=== PATIENT | female | born 1990 | race Caucasian/White ===

== ENCOUNTER 2020-01-30 20:14 | Emergency (ER) | payer OTHER ==
--- NOTE | 2020-01-30 20:50 | ER Document Report ---
ED Medical Screen (RME) - General Chief Complaint: Vaginal Pain Stated Complaint: PRESSURE IN VAGINAL AREA WITH PAIN Time Seen by Provider: 01/30/20 20:45 Mode of Arrival: Ambulatory Information source: Patient Notes: 29-year-old female presents to ED for complaint of very uncomfortable vaginal area. She states it feels like something is falling out is very painful to use a tampon. She states she usually she can use a very long tampon and now it feels like the cervix is right at the edge. She states her last menstrual period started a couple days ago. I have ordered blood urine ultrasound and self swabs for GC chlamydia and wet mount. She will need a pelvic exam when she is in a room and in the bed. I have greeted and performed a rapid initial assessment of this patient. A comprehensive ED assessment and evaluation of the patient, analysis of test results and completion of medical decision making process will be conducted by an additional ED providers. - Related Data Allergies/Adverse Reactions: No Known Allergies Allergy (Unverified 01/30/20 20:37) Past Medical History - Social History Frequency of alcohol use: None Drug Abuse: None Past Surgical History: Reports: Hx Tonsillectomy Physical Exam - Vital signs Vitals: Temp Pulse Resp BP Pulse Ox 98.9 F 98 16 154/97 H 100 01/30/20 20:25 01/30/20 20:25 01/30/20 20:25 01/30/20 20:25 01/30/20 20:25 Course - Vital Signs Vital signs: Temp Pulse Resp BP Pulse Ox 98.9 F 98 16 154/97 H 100 01/30/20 20:25 01/30/20 20:25 01/30/20 20:25 01/30/20 20:25 01/30/20 20:25
[2020-01-30 21:19] LABS: BACTERIA (WET MOUNT) 4+ BACTERIA SEEN; EPITHELIALS (WET MOUNT) 3+ EPITHELIALS SEEN; RBCS (WET MOUNT) RARE RBCS SEEN; T.VAGINALIS (WET MOUNT) NO TRICHOMONAS SEEN; WBCS (WET MOUNT) 2+ WBCS SEEN; YEAST (WET MOUNT) NO YEAST SEEN
[2020-01-30 21:38] LABS: ABSOLUTE BASOPHILS # (AUTO) 0.1 10^3/uL (0.0-0.2); ABSOLUTE EOSINOPHILS # (AUTO) 0.4 10^3/uL (0.0-0.6); ABSOLUTE LYMPHOCYTES (AUTO) 3.1 10^3/uL (0.5-4.7); ABSOLUTE MONOCYTES (AUTO) 0.8 10^3/uL (0.1-1.4); ABSOLUTE NEUT (AUTO) 7.9 10^3/uL (1.7-8.2); BASOPHILS % (AUTO) 0.5 % (0-2); EOSINOPHILS % (AUTO) 3.2 % (0-6); HEMOGLOBIN 14.4 g/dL (12.0-15.5); LYMPHOCYTES % (AUTO) 25.1 % (13-45); MEAN CORPUSCULAR HGB CONC 34.3 g/dL (32.0-36.0); MEAN CORPUSCULAR VOLUME 87 fl (80-97); MONOCYTES % (AUTO) 6.5 % (3-13); PLATELET COUNT 360 10^3/uL (150-450); RED CELL DISTRIBUTION WIDTH 13.1 % (11.5-14.0); SEGMENTED NEUTROPHILS % (AUTO) 64.7 % (42-78); TOTAL CELLS COUNTED % (AUTO) 100 %; WHITE BLOOD COUNT 12.3 10^3/uL (4.0-10.5)
[2020-01-30 21:39] LABS: ALBUMIN 4.8 g/dL (3.5-5.0); ALKALINE PHOSPHATASE 81 U/L (38-126); ANION GAP 9 (5-19); ASPARTATE AMINO TRANSFERASE 74 U/L (14-36); BILIRUBIN,DIRECT 0.1 mg/dL (0.0-0.4); BILIRUBIN,TOTAL 0.7 mg/dL (0.2-1.3); BLOOD UREA NITROGEN 19 mg/dL (7-20); CALCIUM 10.3 mg/dL (8.4-10.2); CARBON DIOXIDE 31 mmol/L (22-30); CHLORIDE 101 mmol/L (98-107); GLUCOSE 89 mg/dL (75-110); POTASSIUM 4.3 mmol/L (3.6-5.0); TOTAL PROTEIN 7.8 g/dL (6.3-8.2)
[2020-01-30 21:44] LABS: APPEARANCE,URINE SLIGHTLY-CLOUDY; BILIRUBIN,URINE NEGATIVE (NEGATIVE); COLOR,URINE YELLOW; GLUCOSE, URINE NEGATIVE (NEGATIVE); KETONES,URINE NEGATIVE (NEGATIVE); LEUKOCYTE ESTERASE,URINE SMALL (NEGATIVE); NITRITE,URINE NEGATIVE (NEGATIVE); PROTEIN,URINE NEGATIVE (NEGATIVE); URINE SPECIFIC GRAVITY 1.018
--- NOTE | 2020-01-30 21:56 | RADIOLOGY REPORT (SQ) ---
US PELVIS TRANSVAGINAL HISTORY: 29 years Female pelvic pain COMPARISON: No relevant studies are available for comparison. Technique: Endovaginal Imaging of the pelvis was performed. Color and spectral imaging was performed. Overall the quality exam was difficult secondary to patient's body habitus. Uterus: Measures 5.8 x 2.8 x 3.5 cm. The endometrium is not well seen but measures approximately 4.1 mm. Multiple new both and cysts are seen in the cervix. The cervix measures 2 cm. Right Ovary: The ovary measures 2.7 x 1.7 x 2.8 cm and is morphologically normal.. Normal color and spectral doppler waveforms Left Ovary: Was not seen. No adnexal mass Other: No free fluid. No adnexal mass. IMPRESSION: 1. Multiple small nabothian cyst in the cervix. 2. Uterus and right ovary are unremarkable. 3. Left ovary is not seen.
[2020-01-30 22:52] LABS: CHLAM PCR NOT DETECTED (NOT DETECT)
[2020-01-31] MEDS ORDERED: HYDROCODONE/ACETAMINOPHEN 5-325 MG (6 TAB/ER DISP) PO PRN (02:40)
[2020-01-31] MEDS ORDERED: CEFTRIAXONE INJ 250 MG VIAL IM ONE (02:41)
[2020-01-31] MEDS ORDERED: LIDOCAINE 1% INJ-PF (10 MG/ML) 30 ML SDV INJ ONE (02:41)
[2020-01-31] MEDS ORDERED: DOXYCYCLINE HYCLATE 100 MG TABLET PO ONE (02:41)
--- NOTE | 2020-01-31 02:43 | ER Document Report ---
ED GI/ - General Chief Complaint: Vaginal Pain Stated Complaint: PRESSURE IN VAGINAL AREA WITH PAIN Time Seen by Provider: 01/30/20 20:45 Primary Care Provider: GINGER CHAPMAN PA-C [Primary Care Provider] - Follow up as needed Mode of Arrival: Ambulatory Notes: Patient is a 29-year-old who comes emergency department for chief complaint of lower abdominal pain, vaginal pain, and occasionally rating pain to her lower back on both sides. She reports urinary hesitancy but denies dysuria. She recently had a menstrual cycle. She denies overt vaginal discharge, she sexually active with her but not recently. She denies nausea or vomiting, fever or chills, or any other locations of pain. Past medical history of PCOS. She denies medical history otherwise. - Related Data Allergies/Adverse Reactions: No Known Allergies Allergy (Unverified 01/30/20 20:37) Past Medical History - General Information source: Patient - Social History Smoking Status: Never Smoker Frequency of alcohol use: None Drug Abuse: None Lives with: Family Family History: Reviewed & Not Pertinent Patient has homicidal ideation: No Past Surgical History: Reports: Hx Tonsillectomy Review of Systems - Review of Systems Constitutional: No symptoms reported EENT: No symptoms reported Cardiovascular: No symptoms reported Respiratory: No symptoms reported Gastrointestinal: See HPI Genitourinary: See HPI Female Genitourinary: See HPI Musculoskeletal: No symptoms reported Skin: No symptoms reported Hematologic/Lymphatic: No symptoms reported Neurological/Psychological: No symptoms reported Physical Exam - Vital signs Vitals: Temp Pulse Resp BP Pulse Ox 98.9 F 98 16 154/97 H 100 01/30/20 20:25 01/30/20 20:25 01/30/20 20:25 01/30/20 20:25 01/30/20 20:25 - Notes Notes: GENERAL: Alert, interacts well. No acute distress. HEAD: Normocephalic, atraumatic. EYES: Pupils equal, round, and reactive to light. Extraocular movements intact. ENT: Oral mucosa moist, tongue midline. Oropharynx unremarkable. Airway patent. NECK: Full range of motion. Supple. Trachea midline. No lymphadenopathy. LUNGS: Clear to auscultation bilaterally, no wheezes, rales, or rhonchi. No respiratory distress. Non-tender chest wall. HEART: Regular rate and rhythm. No murmur ABDOMEN: Minimal generalized nonspecific tenderness over the abdomen. No rigidity or guarding. No distention. EXTREMITIES: Moves all 4 extremities spontaneously. No edema, normal radial and dorsalis pedis pulses bilaterally. No cyanosis. BACK: no cervical, thoracic, lumbar midline tenderness. No saddle anesthesia, normal distal neurovascular exam. Moves all extremities in full range of motion. NEUROLOGICAL: Alert and oriented x3. Normal speech. Cranial nerves II through XII grossly intact. Strength 5/5 in all extremities. PSYCH: Patient talkative and becomes anxious easily, otherwise unremarkable SKIN: Warm, dry, normal turgor. No rashes or lesions noted. Course - Re-evaluation Re-evalutation: Patient is talkative, somewhat anxious, but overall very well-appearing. Abdomen is nonspecific with no overt tenderness or guarding noted. Vital signs unremarkable. CBC unremarkable, chemistry unremarkable except for mildly elevated LFTs, negative. Patient states she has elevated LFTs chronically and is adjusting her diet for this, no concerning upper abdominal pain, food intolerance, or vomiting. No CVA tenderness. No fever. Urinalysis nonspecific. Cell swabs reviewed and show white blood cells, nonspecific otherwise, gonorrhea and Chlamydia negative, trichomonas negative. I discussed all results with patient, she requests a copy of her blood labs and these were provided. Ultrasound reviewed and unremarkable other than some nabothian cysts which I also discussed with patient. I discussed a pelvic exam but patient states she has been waiting for 7 hours, after discussion this was deferred, santosh norton will be treated for suspected pelvic infection, she will follow-up with primary care, I discussed return precautions. Patient states appreciation and agreement. Stable and well-appearing at time of discharge. - Vital Signs Vital signs: Temp Pulse Resp BP Pulse Ox 98.4 F 85 16 135/87 H 96 01/31/20 03:48 01/31/20 03:48 01/31/20 03:48 01/31/20 03:48 01/31/20 03:48 - Laboratory Result Diagrams: 01/30/20 20:25 01/30/20 20:25 Laboratory results interpreted by me: 01/30/20 01/30/20 01/30/20 20:25 20:25 20:58 WBC 12.3 H Carbon Dioxide 31 H Calcium 10.3 H AST 74 H ALT 133 H Urine Blood MODERATE H Urine Urobilinogen 2.0 H Ur Leukocyte Esterase SMALL H Discharge - Discharge Clinical Impression: Vaginal pain Abdominal pain Qualifiers: Abdominal location: generalized Qualified Code(s): R10.84 - Generalized abdominal pain Condition: Stable Disposition: HOME, SELF-CARE Instructions: Oral Narcotic Medication ([facility]) Additional Instructions: Your ultrasound is reassuring, shows nabothian cysts on the cervix but no concerning findings. Based on your testing, symptoms, evaluation I believe that you have a pelvic infection. You have begun treatment for this, take antibiotics as prescribed to completion. Follow-up with primary care for additional management. Return if you worsen including severe worsening pain, vomiting, spiking fever, or any other concerning or worsening symptoms. Prescriptions: Metronidazole [Flagyl 500 mg Tablet] 500 mg PO BID 7 Days #14 tablet Doxycycline Hyclate [Vibramycin 100 mg Tablet] 100 mg PO BID 7 Days #14 tablet Ondansetron [Zofran Odt 4 mg Tablet] 1 - 2 tab PO Q4H PRN #15 tab.rapdis PRN Reason: For Nausea/Vomiting Forms: Return to Work Referrals: GINGER CHAPMAN PA-C [Primary Care Provider] - Follow up as needed
[2020-01-31] MEDS ORDERED: ONDANSETRON ODT 4 MG TAB (6 TAB/ER DISP) PO PRN (03:39)
[2020-01-31 03:49] VITALS: BP 135/87
== END 2020-01-31 03:50 | disposition home or self-care (01) ==
LOC: ER 20:14
DX: R10.84 Generalized abdominal pain (principal); R10.817 Generalized abdominal tenderness; N88.8 Other specified noninflammatory disorders of cervix uteri; M54.5 Low back pain; R39.11 Hesitancy of micturition; R79.89 Other specified abnormal findings of blood chemistry
CPT/HCPCS: 99285; 96372; 36415; 87086; 87210; 84703; 85025; 87088; 80053; 81001; 87491; 87591; 76830; J3490; J0696